=== PATIENT | male | born 1985 | race Caucasian/White ===

== ENCOUNTER 2016-08-04 07:22 | Day surgery (SDC) | payer MEDICARE ==
[2016-08-04] MEDS ORDERED: Lactated Ringers 1,000 ML IV SCH (08:15)
[2016-08-04] MEDS ORDERED: fentaNYL 100 MCG/2 ML SDV ONE (09:06)
[2016-08-04] MEDS ORDERED: Propofol 200 MG/20 ML SDV ONE ×2 (09:06→09:25)
[2016-08-04] MEDS ORDERED: Midazolam 1 MG/ML 2 ML SDV ONE (09:06)
[2016-08-04 10:52] VITALS: BP 119/79
--- NOTE | 2016-08-05 10:57 | OR ---
DATE OF PROCEDURE: 08/04/2016 PREOPERATIVE DIAGNOSIS: Hematochezia and lower abdominal pain. POSTOPERATIVE DIAGNOSIS: Hematochezia and lower abdominal pain, possible colitis, possible proctitis. PROCEDURE: Colonoscopy to the cecum with random colon biopsies and biopsy of rectum. ANESTHESIA: IV anesthesia with monitored anesthesia care. INDICATIONS: This 31-year-old white male is referred for a colonoscopy because of blood in his stool. He also complains of lower abdominal pain. I counseled him for the procedure including risks and alternatives, and he gave his informed consent to proceed. DESCRIPTION OF PROCEDURE: The patient was placed in the left lateral decubitus position. IV anesthesia was administered by the Anesthesia Service. Time-out was held. A rectal exam was performed, which was unremarkable. The flexible video Olympus colonoscope was introduced through his anus, up his rectum, and out his colon all the way to the cecum. In the rectum, it appeared there was some inflammation present. Once we reached the cecum, the scope was slowly withdrawn examining the mucosa throughout. There were some very faint mild changes of the mucosa suggesting possible mild colitis. We obtained random colon biopsies. In the rectum, we biopsied the rectum. The scope was retroflexed with the distal rectum showing inflammation. No obvious large hemorrhoids. The scope was straightened and removed. He tolerated the procedure well. Micah Zheng MD /[id number] MTDD
== END 2016-08-04 11:18 | disposition home or self-care (01) ==
LOC: JP.SDS 07:22
PROVIDERS: ATTEND Surgery
DX: K63.89 Other specified diseases of intestine (principal)
CPT/HCPCS: 45380; J2250; J2704; J3010; J7120; 88305

== ENCOUNTER 2019-08-01 17:23 | Emergency (ER) | payer MEDICARE ==
[2019-08-01 17:50] VITALS: BP 143/82; PULSE 95
[2019-08-01] MEDS ORDERED: Ketorolac 60 MG/2 ML SDV IM ONE (18:09)
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
== END 2019-08-01 18:57 | disposition home or self-care (01) ==
LOC: JP.ED 17:23
DX: M25.511 Pain in right shoulder (principal)
CPT/HCPCS: 73030; 96372; 99283; J1885

== ENCOUNTER 2019-11-11 07:21 | Day surgery (SDC) | payer MEDICARE ==
[~2019-11-11 07:21] MED LIST: Bupivacaine 0.5% 30 ML SDV ONE; methylPREDNISolone Acetate 80 MG/ML SDV ONE
[2019-11-11] MEDS ORDERED: Lactated Ringers 1,000 ML IV SCH ×2 (08:45→09:00)
[2019-11-11] MEDS ORDERED: Propofol 200 MG/20 ML SDV ONE (09:51)
[2019-11-11 11:09] VITALS: BP 121/76; PULSE 72
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
== END 2019-11-11 11:15 | disposition home or self-care (01) ==
LOC: JP.SDS 07:21
PROVIDERS: ATTEND Specialist
DX: M75.01 Adhesive capsulitis of right shoulder (principal)
CPT/HCPCS: 23700; J2704; J7120; J1040; J3490

== ENCOUNTER 2020-10-04 17:04 | Emergency (ER) | payer MEDICARE ==
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
[2020-10-04 19:18] VITALS: BP 142/88; PULSE 60
--- NOTE | 2020-10-05 08:59 | CR ---
Wrist Comp Min 3V Lt CLINICAL HISTORY: Injury FINDINGS: There is no acute fracture or dislocation within the left wrist. Impression: Negative
== END 2020-10-04 18:13 | disposition home or self-care (01) ==
LOC: JP.ED 17:04
DX: S60.212A Contusion of left wrist, initial encounter (principal); J45.909 Unspecified asthma, uncomplicated; Z72.0 Tobacco use; W22.8XXA Striking against or struck by other objects, initial encounter
CPT/HCPCS: 73110-26-LT; 73110-LT; 99283-25